=== PATIENT | female | born 1980 | race Caucasian/White ===

== ENCOUNTER 2019-06-07 16:44 | Emergency (ER) | payer SELFPAY ==
[~2019-06-07] VITALS: Ht 243.8 cm; Wt 136.4 kg
[2019-06-07 17:35] VITALS: BP 132/81; PULSE 89; TEMP 98.9
== END 2019-06-07 20:17 | disposition left against medical advice (07) ==
LOC: COL.ER 16:44
DX: K08.89 Other specified disorders of teeth and supporting structures (principal)

== ENCOUNTER 2019-09-15 16:11 | Emergency (ER) | payer SELFPAY ==
[~2019-09-15] VITALS: Ht 243.8 cm; Wt 113.6 kg
[2019-09-15 16:16] VITALS: BP 142/81; TEMP 98.6
[2019-09-15 18:10] VITALS: PULSE 98
== END 2019-09-15 18:15 | disposition home or self-care (01) ==
LOC: COL.ER 16:11
DX: S60.032A Contusion of left middle finger without damage to nail, initial encounter (principal); S60.022A Contusion of left index finger without damage to nail, initial encounter; S60.042A Contusion of left ring finger without damage to nail, initial encounter; S60.222A Contusion of left hand, initial encounter; F17.290 Nicotine dependence, other tobacco product, uncomplicated; W20.8XXA Other cause of strike by thrown, projected or falling object, initial encounter; Y92.009 Unspecified place in unspecified non-institutional (private) residence as the place of occurrence of the external cause
CPT/HCPCS: J1885

== ENCOUNTER 2020-10-25 00:26 | Emergency (ER) | payer SELFPAY ==
[~2020-10-25] VITALS: Ht 160 cm; Wt 90.0 kg
[2020-10-25 00:34] VITALS: TEMP 99.3
[2020-10-25] MEDS ORDERED: PREDNISONE20 MG PO (02:45)
[2020-10-25] MEDS ORDERED: PROAIR DIGIHAL90 MCG IH (02:45)
[2020-10-25 02:50] VITALS: BP 137/94; PULSE 68
== END 2020-10-25 02:54 | disposition home or self-care (01) ==
LOC: COL.ER 00:26
DX: J45.901 Unspecified asthma with (acute) exacerbation (principal); Z87.891 Personal history of nicotine dependence
CPT/HCPCS: J7512

== ENCOUNTER 2024-03-30 22:28 | Emergency (ER) | payer OTHER ==
[~2024-03-30] VITALS: Ht 154.9 cm; Wt 122.7 kg
[~2024-03-30 22:28] MED LIST: PREDNISONE20 MG PO; PROAIR DIGIHAL90 MCG IH
[2024-03-30 22:37] VITALS: BP 127/71; TEMP 99.1
[2024-03-30] MEDS ORDERED: TESSALON PERLE200 MG PO (23:42)
[2024-03-30] MEDS ORDERED: Benzonatate 100 MG CAP PO ONE (23:45)
[2024-03-30 23:52] VITALS: PULSE 103
== END 2024-03-30 23:54 | disposition home or self-care (01) ==
LOC: COL.ER 22:28
DX: J06.9 Acute upper respiratory infection, unspecified (principal)